=== PATIENT | male | born 1970 ===

== ENCOUNTER 2022-11-12 11:31 | Observation (INO) | payer MEDICARE ==
[~2022-11-12] VITALS: Ht 177.8 cm; Wt 90.5 kg
[2022-11-12] VITALS (11 sets, daily range): BP systolic 125–150; BP diastolic 52–72; PULSE 70; TEMP 97.7–98.8
[2022-11-12] MEDS ORDERED: ASPIRIN 81M81 MG/TA2 (14:19)
[2022-11-12] MEDS ORDERED: INSULIN HUMA100 U/ML (14:20)
--- NOTE | 2022-11-12 14:54 | NUR ---
Patient admitted to floor, transported via EMS from [place]. Patient alert and oriented, able to transfer self to bed from [facility]. States he has been miserable, having abdominal pain, nausea, and vomiting for 4 days. States the abdominal pain is mild right now. Is a type 1 diabetic with an insulin pump, will turn off per Dr. Rowley's request. Bilateral BKA present, pt uses prosthetics. Pt oriented to room, bed in lowest position with the call light within reach.
[2022-11-12 15:53] LABS: HEMATOCRIT 45.2 % (42.0-52.0); HEMOGLOBIN 15.3 g/dl (13.5-18.0); MEAN CELL VOLUME 85 fl (80.0-100.0); MEAN CORPUSCULAR HEMOGLOBIN 29 pg (27-31); MEAN CORPUSCULAR HGB CONC 34 g/dl (33.0-37.0); MEAN PLATELET VOLUME 10.2 fl (7.4-10.4); PLATELET COUNT 148 K/mm3 (130-400); RED BLOOD COUNT 5.32 M/mm3 (4.20-5.60); REDCELL DISTRIBUTION WIDTH-CV 14.5 % (11.5-14.5)
[2022-11-12 16:20] LABS: CALCIUM 8.6 mg/dL (8.4-10.2); CREATININE, serum 1.34 mg/dL (0.72-1.25); POTASSIUM 4.5 mmol/L (3.5-4.5)
--- NOTE | 2022-11-12 17:23 | NUR ---
Patient transported off the floor by preop nurse
[2022-11-12] MEDS ORDERED: PYRIDIUM 100MG100 MG PO (18:15)
--- NOTE | 2022-11-12 19:18 | NUR ---
PT RETURNS FROM SURGERY, IS ALERT AND ORIENTED X4. HAS IVF TO LEFT AC INFUSING WITHOUT PROBLEM. DENIES PAIN. PT IS HUNGRY.
--- NOTE | 2022-11-12 20:00 | NUR ---
PTS CI=[id number]. SANDWICH BOX GIVEN. INSULIN 2 UNITS GIVEN SQ.
--- NOTE | 2022-11-12 22:30 | NUR ---
PT VOIDING BLOODY URINE. TAKING FLUIDS WELL. IVF CONTINUE TO LAC WITHOUT PROBLEM.
[2022-11-13] VITALS: BP 130/61; PULSE 70; TEMP 98.8
[2022-11-13 03:50] VITALS: BP 127/54; PULSE 70; TEMP 98.7
--- NOTE | 2022-11-13 04:30 | NUR ---
ORDER FOR INT. PT DISCONNECTED FROM IVF. DENIES PAIN.
[2022-11-13 06:43] LABS: BASO % 0.1 % (0.0-2.0); GRAN # 6.9 K/mm3 (1.4-6.5); GRAN % 85.5 % (42.2-75.2); HEMATOCRIT 43.8 % (42.0-52.0); HEMOGLOBIN 14.9 g/dl (13.5-18.0); LYMPH # 0.4 K/mm3 (1.2-3.4); LYMPH % 5.1 % (20.0-51.0); MEAN CELL VOLUME 85 fl (80.0-100.0); MEAN CORPUSCULAR HEMOGLOBIN 29 pg (27-31); MEAN CORPUSCULAR HGB CONC 34 g/dl (33.0-37.0); MEAN PLATELET VOLUME 10.4 fl (7.4-10.4); MONO # 0.7 K/mm3 (0.1-0.6); MONO % 9.1 % (1.7-9.3); PLATELET COUNT 176 K/mm3 (130-400); RED BLOOD COUNT 5.13 M/mm3 (4.20-5.60); REDCELL DISTRIBUTION WIDTH-CV 14.6 % (11.5-14.5)
[2022-11-13 06:58] LABS: CALCIUM 8.9 mg/dL (8.4-10.2); CREATININE, serum 1.44 mg/dL (0.72-1.25); MAGNESIUM 1.8 mg/dL (1.6-2.6); PHOSPHOROUS 2.7 mg/dL (2.3-4.7); POTASSIUM 4.8 mmol/L (3.5-4.5)
--- NOTE | 2022-11-13 07:20 | NUR ---
Patient sitting up in bed this AM ready for breakfast, states he is in no pain following his procedure. States moderate pain when urinating, urine is blood tinged. Able to urinate without difficulty. Encouraged fluids. AM assessment complete. No further needs at this time.
[2022-11-13 08:23] VITALS: BP 134/60; PULSE 70; TEMP 97.6
--- NOTE | 2022-11-13 10:36 | NUR ---
Pt discharged to home, picked up by daughter. Educated on discharge instructions and new medications, pt verbalized understanding. All belongings taken home. Safely assisted to car by nursing staff.
== END 2022-11-13 10:37 | disposition home or self-care (01) ==
LOC: MEDICAL 11:31 → SURG 14:24
PROVIDERS: ADMIT Internal Medicine
DX: N20.1 Calculus of ureter (principal); E10.9 Type 1 diabetes mellitus without complications; Z89.511 Acquired absence of right leg below knee; Z89.512 Acquired absence of left leg below knee
CPT/HCPCS: C1769; C2617; G0378; J0690; J1100; J1815; J2405; J2704; J3010; J7030; Q9967